=== PATIENT | male | born 1935 | race Caucasian/White ===

== ENCOUNTER 2018-12-07 07:58 | Day surgery (SDC) | payer MEDICARE, OTHER ==
[~2018-12-07] VITALS: Ht 172.7 cm; Wt 79.4 kg
[~2018-12-07 07:58] MED LIST: AMLO10TA7 PO; ASCO500C18 PO; ATOR40TA71 PO; FLUN25H NS; LEVO25TA54 PO; LOSA100T58 PO; MAGN200T4 PO; NIAC500T22 PO; OMEG100014 PO; SELE200C PO; SILD20TA14 PO; SODIUM CHLORIDE 0.9% 1000ML 1,000 ML IV ONE; TAMS-1 PO; potassium PO; vitamin d2
[2018-12-07 10:11] VITALS: BP 149/72
[2018-12-07] MEDS ORDERED: MULT1CAP32 PO (10:33)
[2018-12-07] MEDS ORDERED: VITAMIN D2 PO (10:33)
[2018-12-07] MEDS ORDERED: PROPOFOL 10 MG/ML 20ML VIAL IV ONE ×2 (10:59)
[2018-12-07 11:13] VITALS: BP 104/56
[2018-12-07 11:18] VITALS: BP 97/64
[2018-12-07 11:23] VITALS: BP 120/68
[2018-12-07 11:28] VITALS: BP 127/73
[2018-12-07 11:35] VITALS: BP 137/69
== END 2018-12-07 11:45 | disposition home or self-care (01) ==
LOC: ENDO 07:58 → DAH 07:58 → ENDO 11:45
PROVIDERS: ATTEND Internal Medicine
DX: R13.10 Dysphagia, unspecified (principal); K21.0 Gastro-esophageal reflux disease with esophagitis; K22.2 Esophageal obstruction; K44.9 Diaphragmatic hernia without obstruction or gangrene; K29.50 Unspecified chronic gastritis without bleeding; I10 Essential (primary) hypertension; E78.00 Pure hypercholesterolemia, unspecified; M19.90 Unspecified osteoarthritis, unspecified site; Z86.010 Personal history of colon polyps; Z79.899 Other long term (current) drug therapy; Z96.641 Presence of right artificial hip joint; Z98.49 Cataract extraction status, unspecified eye; Z98.890 Other specified postprocedural states; Z72.89 Other problems related to lifestyle; Z87.891 Personal history of nicotine dependence; Z82.49 Family history of ischemic heart disease and other diseases of the circulatory system; Z82.3 Family history of stroke
CPT/HCPCS: 43239; 43249; 88305; A4215; A4221; A4222; A4223; A4606; A4615; A4663; J2704 ×2; J7030

== ENCOUNTER 2020-06-24 14:52 | Emergency (ER) | payer OTHER ==
[~2020-06-24 14:52] MED LIST changes: +AMLO-258 PO; -AMLO10TA7 PO; +MULT1CAP32 PO; -SODIUM CHLORIDE 0.9% 1000ML 1,000 ML IV ONE; +VITAMIN D2 PO; -vitamin d2
[2020-06-24 15:35] LABS: APPEARANCE,URINE Clear (CLEAR); BILIRUBIN,URINE Negative (NEGATIVE); COLOR,URINE Yellow (YELLOW); GLUCOSE, URINE (UA) Negative (NEGATIVE); KETONES,URINE Negative (NEGATIVE); LEUKOCYTE ESTERASE ,URINE Trace (NEGATIVE); NITRATE,URINE Negative (NEGATIVE); OCCULT BLOOD,URINE Negative (NEGATIVE); PROTEIN,URINE POS 1+ mg/dL (NEGATIVE); UROBILINOGEN,URINE 0.2 mg/dL (0.2-1.0)
[2020-06-24 15:50] LABS: BACTERIA,URINE Rare /HPF (None Seen); RBC,URINE 0-1 /HPF (0-1); WBC,URINE 0-1 /HPF (0-1)
[2020-06-24 15:51] LABS: SQUAMOUS EPITHELIAL CELL,UR None Seen /HPF (0-2)
== END 2020-06-24 16:12 | disposition home or self-care (01) ==
LOC: EDH 14:52
DX: R33.9 Retention of urine, unspecified (principal); I10 Essential (primary) hypertension; E78.00 Pure hypercholesterolemia, unspecified
CPT/HCPCS: 51702; 81001

== ENCOUNTER 2020-07-06 06:48 | Emergency (ER) | payer OTHER, MEDICARE ==
[2020-07-06 08:09] LABS: BASOPHILS % (AUTO) 0.3 % (0.0-5.0); EOSINOPHILS % (AUTO) 1.1 % (0.0-8.0); HEMATOCRIT 37.4 % (42-54); LYMPHOCYTES % (AUTO) 5.1 % (21.0-51.0); MEAN CORPUSCULAR HEMOGLOBIN 30.9 pg (27.0-33.0); MEAN CORPUSCULAR VOLUME 88.2 fL (79-99); MONOCYTES % (AUTO) 7.5 % (3.0-13.0); NEUTROPHILS % (AUTO) 85.4 % (40.0-77.0); PLATELET COUNT (AUTO) 208 K/uL (130-400); RED BLOOD CELL COUNT(AUTO) 4.24 MIL/uL (4.50-6.20); RED CELL DISTRIBUTION WIDTH 12.9 % (11.0-15.5); WHITE BLOOD COUNT (AUTO) 18.1 K/uL (4.8-10.8)
[2020-07-06 08:15] LABS: CREATININE 0.9 mg/dL (0.5-1.5); POTASSIUM 3.4 mmol/L (3.5-5.1)
[2020-07-06 08:20] LABS: ALBUMIN 3.5 g/dL (3.5-5.0); BILIRUBIN,TOTAL 0.7 mg/dL (0.2-1.0); TOTAL PROTEIN, SERUM 6.7 g/dL (6.0-8.3)
[2020-07-06 08:56] LABS: APPEARANCE,URINE TURBID (CLEAR); BILIRUBIN,URINE NEGATIVE (NEGATIVE); COLOR,URINE YELLOW (YELLOW); GLUCOSE, URINE (UA) NEGATIVE (NEGATIVE); KETONES,URINE NEGATIVE (NEGATIVE); LEUKOCYTE ESTERASE ,URINE LARGE (NEGATIVE); NITRATE,URINE POSITIVE (NEGATIVE); OCCULT BLOOD,URINE LARGE (NEGATIVE); PH,URINE 6.5 (5.0-8.0); PROTEIN,URINE 100 mg/dL (NEGATIVE); UROBILINOGEN,URINE 0.2 mg/dL (0.2-1.0)
[2020-07-06 09:08] LABS: RBC,URINE 51-100 /HPF (0-1)
[2020-07-06] MEDS ORDERED: CEFTRIAXONE SODIUM 1 GM ONE (09:08)
[2020-07-06 09:09] LABS: BACTERIA,URINE Moderate /HPF (None Seen); SQUAMOUS EPITHELIAL CELL,UR Rare /HPF (0-2); WBC,URINE 51-100 /HPF (0-1)
[2020-07-06] MEDS ORDERED: SODIUM CHLORIDE 0.9% 50 ML IV ONE (09:10)
== END 2020-07-06 09:51 | disposition home or self-care (01) ==
LOC: EDH 06:48
DX: N39.0 Urinary tract infection, site not specified (principal); E78.00 Pure hypercholesterolemia, unspecified; I10 Essential (primary) hypertension
CPT/HCPCS: 36415; 51702; 80053; 81001; 85025; 87077; 87088; 87186; 96365; 99284; J0696

== ENCOUNTER → 2020-07-10 | Outpatient (CLI) | payer OTHER | END | disposition home or self-care (01) | LOC: RAH 12:16 | PROVIDERS: ATTEND Urology | DX: N50.812 Left testicular pain (principal); D30.00 Benign neoplasm of unspecified kidney; N43.3 Hydrocele, unspecified | CPT/HCPCS: 76870 ==